=== PATIENT | male | born 1955 | race Caucasian/White ===

== ENCOUNTER 2022-04-18 09:39 | Emergency (ER) | payer OTHER ==
[~2022-04-18] VITALS: Ht 152.4 cm; Wt 122.5 kg
--- NOTE | 2022-04-18 12:03 | NUR ---
BIBS, STATED " I WAS WALKING DOWN THE STAIRS AND HEARD A CRACK AND THEN MY WHOLE FOOT AND ANKLE HURT REALLY BAD, IT THEN SWELLED UP, " STATED HE DID NOT FALL LEFT ANKLE ACHES & IS SWOLLEN
--- NOTE | 2022-04-18 12:05 | NUR ---
X-RAY OF LEFT LEG AND FOOT DONE
--- NOTE | 2022-04-18 12:05 | NUR ---
URINAL GIVEN TO VOID, TO PREVENT ANY FALL PT IS 270LBS
--- NOTE | 2022-04-18 13:49 | NUR ---
Patient discharged to home in stable condition. Written and verbal after care instructions given. Patient verbalizes understanding of instruction.
[2022-04-18 14:26] VITALS: BP 144/80
== END 2022-04-18 13:48 | disposition home or self-care (01) ==
LOC: ER 09:50
DX: S92.322A Displaced fracture of second metatarsal bone, left foot, initial encounter for closed fracture (principal); M79.89 Other specified soft tissue disorders; I10 Essential (primary) hypertension; E11.9 Type 2 diabetes mellitus without complications; X50.1XXA Overexertion from prolonged static or awkward postures, initial encounter; Y93.89 Activity, other specified; Y92.89 Other specified places as the place of occurrence of the external cause; Y99.8 Other external cause status
CPT/HCPCS: 73590-TC; 73610-TC; 73630-TC; 93971-TC

== ENCOUNTER 2022-12-02 17:31 | Emergency (ER) | payer OTHER ==
[~2022-12-02] VITALS: Ht 175.3 cm; Wt 108.9 kg
--- NOTE | 2022-12-02 17:45 | NUR ---
IV #18 inserted over right AC.
--- NOTE | 2022-12-02 17:47 | NUR ---
Patient attended ER for sudden epigastric and abdominal pain. He was ambulatory. He reported that the pain started in the afternoon, he denied new food or meds taken recently. He had one bowel movement this morning and has been farting. GCS [id number]. BP 156/101mmHg, P 75/min. Spo2 100% RA.
[2022-12-02] MEDS ORDERED: FAMOTIDINE/PF INJ 20 MG/2 ML VIAL IV ONE ×2 (18:00→18:12)
[2022-12-02] MEDS ORDERED: ONDANSETRON HCL/PF 4 MG/2 ML VIAL IV ONE (18:00)
[2022-12-02] MEDS ORDERED: IV NS 0.9% 1,000 ML IV ONE (18:00)
[2022-12-02] MEDS ORDERED: MORPHINE SULFATE INJ 2 MG/ML DISP.SYRIN IV ONE (18:00)
[2022-12-02] MEDS ORDERED: ONDANSETRON HCL/PF 4 MG/2 ML VIAL ONE (18:12)
[2022-12-02] MEDS ORDERED: MORPHINE SULFATE INJ 4 MG/ML DISP.SYRIN ONE (18:12)
[2022-12-02 18:46] LABS: BASOPHILS # (AUTO) 0.2 K/uL (0.0-0.2); BASOPHILS % (AUTO) 2.4 % (0.0-2.0); CARBON DIOXIDE 29 mmol/L (21-32); CHLORIDE 105 mmol/L (98-107); CREATININE 0.9 mg/dL (0.6-1.3); EOSINOPHILS % (AUTO) 2.7 % (0.0-6.0); GLUCOSE 173 mg/dL (74-106); HEMATOCRIT 42 % (39-51); HEMOGLOBIN 14.4 g/dL (13.5-17.5); LYMPHOCYTES # (AUTO) 0.6 K/uL (0.8-4.8); LYMPHOCYTES % (AUTO) 7.1 % (20.0-44.0); MEAN CORPUSCULAR HGB CONC 35 g/dl (31.0-36.0); MEAN CORPUSCULAR VOLUME 87 fL (80-96); MONOCYTES # (AUTO) 0.5 K/uL (0.1-1.30); MONOCYTES % (AUTO) 5.9 % (2.0-12.0); NEUTROPHILS # (AUTO) 7.2 K/uL (1.8-8.9); NEUTROPHILS % (AUTO) 81.9 % (43.0-81.0); PLATELET COUNT (AUTO) 169 K/uL (150-450); POTASSIUM 4.1 mmol/L (3.5-5.1); RED BLOOD CELL COUNT(AUTO) 4.82 MIL/uL (4.5-6.0); SODIUM SERUM 138 mmol/L (136-145); UREA NITROGEN, BLOOD 13 mg/dL (7-18); WHITE BLOOD COUNT (AUTO) 8.8 K/uL (4.3-11.0)
[2022-12-02 18:51] LABS: ALANINE AMINOTRANSFERASE 63 U/L (12-78); ALBUMIN 3.5 g/dL (3.4-5.0); ALKALINE PHOSPHATASE 111 U/L (46-116); ASPARTATE AMINOTRANSFERASE 41 U/L (15-37); BILIRUBIN,DIRECT 0.2 mg/dL (0.0-0.2); BILIRUBIN,TOTAL 0.9 mg/dL (0.2-1.0); TOTAL PROTEIN, SERUM 7.1 g/dL (6.4-8.2)
[2022-12-02] MEDS ORDERED: METOCLOPRAMIDE HCL 10 MG/2 ML VIAL IV ONE (19:00)
[2022-12-02] MEDS ORDERED: METOCLOPRAMIDE HCL 10 MG/2 ML VIAL ONE (19:03)
--- NOTE | 2022-12-02 19:10 | NUR ---
Checked on patient just now. He said that the nausea and vomiting has almost ceased after ondansetron. The pain is also much better with morphine.
--- NOTE | 2022-12-02 20:27 | NUR ---
WOULD LIKE TO DO PO CHALLENGE, PATIENT ALREADY TOLERATED WATER, APPLE SAUCE GIVEN.
[2022-12-02] MEDS ORDERED: FAMO20TA8 PO (20:51)
[2022-12-02] MEDS ORDERED: METO10TA3 PO (20:51)
--- NOTE | 2022-12-02 21:09 | NUR ---
Patient discharged to home in stable condition. Written and verbal after care instructions given. Patient verbalizes understanding of instruction. IV removed. Catheter intact and site benign. Pressure and 4x4 applied to site. No bleeding noted. rx sent electronicall to pharmacy of choice. ambulatory with a steady gait. all questions answered.
[2022-12-02 21:11] VITALS: BP 156/80
== END 2022-12-02 21:12 | disposition home or self-care (01) ==
LOC: ER 17:55
DX: E11.43 Type 2 diabetes mellitus with diabetic autonomic (poly)neuropathy (principal); K31.84 Gastroparesis; R10.13 Epigastric pain; I10 Essential (primary) hypertension; Z79.899 Other long term (current) drug therapy
CPT/HCPCS: 99285; 74176; 96374; 96375; 71045; 96361; 93005; 85025; 80048; 80076; 36415; 84484; J2270; J3490; J2765; J2405; J7030